=== PATIENT | female | born 1965 | race Caucasian/White ===

== ENCOUNTER 2022-08-25 09:43 | Outpatient (CLI) | payer OTHER, SELFPAY | END 2022-08-25 09:44 | disposition home or self-care (01) | LOC: NFLDREF 09:44 | PROVIDERS: Visit Provider Physician Assistant | DX: Z01.419 Encounter for gynecological examination (general) (routine) without abnormal findings (principal); Z13.6 Encounter for screening for cardiovascular disorders; Z13.1 Encounter for screening for diabetes mellitus | CPT/HCPCS: 80061; 82947 ==

== ENCOUNTER 2022-09-08 12:35 | Outpatient (CLI) | payer OTHER, SELFPAY ==
--- NOTE | 2022-09-08 13:00 | CRLHL7_ITS ---
For Patients: As a result of the Century Cures Act, medical imaging exams and procedure reports are released immediately into your electronic medical record. You may view this report before your referring provider. If you have questions, please contact your health care provider. INDICATION: Lung cancer screening. History of smoking. High risk patient with greater than 40 pack-year smoking history. TECHNIQUE: Low-dose lung cancer screening non-contrast CT chest. Dose reduction techniques were used. COMPARISON: None. FINDINGS: NODULES: Spiculated nodule left upper lobe measuring 7.2 x 10.0 x 9.4 millimeters, series 3, image 28. 6 millimeter ovoid nodule left lower lobe medially, series 3, image 64. LUNGS AND PLEURA: Mild paraseptal emphysematous changes. Mild ground-glass density right lower lobe, series 3, image 79. MEDIASTINUM: No adenopathy. CORONARY ARTERY CALCIFICATION: None. LIMITED UPPER ABDOMEN: Normal. MUSCULOSKELETAL: Normal. IMPRESSION: 1. 1 cm spiculated nodule left upper lobe. 2. 6 millimeter nodule left lower lobe. LUNG-RADS CATEGORY: 4X RADIOLOGIST RECOMMENDATION: PET-CT recommended. Please note that all CT scans at this facility use dose modulation, iterative reconstruction, and/or weight-based dosing when appropriate to reduce radiation dose to as low as reasonably achievable. Dictated by Victor Hugo Sandoval MD @ 09/08/2022 3:49:27 PM (Electronically Signed)
--- NOTE | 2022-09-08 13:45 | CRLHL7_ITS ---
For Patients: As a result of the Cures Act, medical imaging exams and procedure reports are released immediately into your electronic medical record. You may view this report before your referring provider. If you have questions, please contact your health care provider. EXAMINATION: MRA HEAD DATE: 09/08/2022. HISTORY: Patient with headaches and a family history of brain aneurysms. TECHNIQUE: 3D TOF MRA of the head was performed. COMPARISON: None. FINDINGS: The intracranial segments of the right internal carotid artery are normal. The anterior communicating artery is seen. The visualized portions of the right middle and anterior cerebral arteries are normal. The intracranial segments of the left internal carotid artery are normal. The visualized portions of the left middle and anterior cerebral arteries are normal. The right vertebral artery is dominant. The visualized intracranial portions of the vertebral arteries are normal. The basilar artery is normal. The right posterior cerebral artery is normal. The left posterior cerebral artery is normal. IMPRESSION: Normal MRA of the head without intracranial aneurysms. Steve Valdez M.D. Neurointerventionalist [facility] Pager: Office/Appointments: Answering Service: [facility]: [email or web address] Dictated by: Steve Valdez MD @ 09/08/2022 14:40:10 (Electronically Signed)
== END 2022-09-08 12:36 | disposition home or self-care (01) ==
PROVIDERS: Visit Provider Physician Assistant
DX: Z12.2 Encounter for screening for malignant neoplasm of respiratory organs (principal); R91.8 Other nonspecific abnormal finding of lung field; Z72.0 Tobacco use; Z82.49 Family history of ischemic heart disease and other diseases of the circulatory system
CPT/HCPCS: 70544; 71271

== ENCOUNTER 2022-10-30 16:03 | Outpatient (CLI) | payer OTHER, SELFPAY ==
--- NOTE | 2022-10-30 16:15 | CRLHL7_ITS ---
For Patients: As a result of the 21st Century Cures Act, medical imaging exams and procedure reports are released immediately into your electronic medical record. You may view this report before your referring provider. If you have questions, please contact your health care provider. EXAM: PET-CT SKULL BASE TO THIGH CLINICAL INFORMATION: 57-yo female with left upper lobe nodule. History of tobacco abuse. Patient is referred for further characterization. TECHNIQUE: Radiopharmaceutical: 11.7 mCi of 18F-FDG Intravenous injection site: RAC Uptake time: 61 minutes Blood glucose level at the time of injection: 88 mg/dL Field of view: Skull base to mid-thighs CT protocol: The low-dose, free-breathing, noncontrast CT performed as part of this study is designed for the purposes of attenuation correction and lesion localization, and it is neither sufficient, nor it should be substituted for diagnostic purposes. COMPARISON: CT chest 09/08/2022 FINDINGS: Physiologic background liver standardized uptake value (SUV mean and SUV max) reported for comparison between PET studies: 3.0 and 3.7. Visualized head and neck: Physiologic uptake in the visualized portions of the brain. Bilateral increased uptake within the lingual tonsils, SUV max 5.1. Nonspecific. Head and neck lymph nodes: No abnormal uptake. Lungs: Bilateral pulmonary nodules demonstrate variable uptake. For example: -anterior left upper lobe nodule with irregular margins and moderate uptake, 1.0 cm, SUV max 4.4 (fused image 102). Previously 1.1 cm (series 3, image 26). -medial left lower lobe nodule along the descending aorta, 0.5 cm, SUV max 1.5 (fused image 127). Previously 0.6 cm (series 3, image 64). -right lower lobe ground-glass opacity, 0.7 cm, SUV max 1.1 (fused image 139). Previously 0.7 cm (series 3, image 79). -right upper lobe nodular opacity, 0.4 cm, SUV max 0.7 (fused image 104). -additional right lung perifissural nodules and a small density along the diaphragm in the right base are considered too small to definitively characterize. Thoracic lymph nodes: Variable uptake within nonenlarged AP window, left perihilar and subcarinal lymph nodes is nonspecific though suspicious. For example: -AP window lymph node, 0.5 cm short axis, SUV max 5.1 (fused image 118). -left perihilar dagoberto uptake, SUV max 3.9 (fused image 122). -subcarinal lymph node, 0.7 cm short axis, SUV max 2.6. Other chest findings: Mild nonfocal esophageal uptake is nonspecific, possibly reactive or related to reflux. Hepatobiliary: No abnormal uptake. The body and fundus of the gallbladder are decompressed giving the appearance of wall thickening. Cholelithiasis. Spleen: No abnormal uptake. Pancreas: No abnormal uptake. Adrenals: No abnormal uptake. Kidneys and bladder: No abnormal uptake. Small nonobstructing right renal calcification and a punctate left renal calcification. Tracer activity in the renal collecting systems bilaterally. Limited bladder distention with generalized wall thickening more prominent along the anterior wall. Bowel and peritoneum: No suspicious gastric, small bowel uptake. Unremarkable appendix. Mild distal colonic diverticulosis. Pelvic organs: No abnormal uptake. Bilateral Essure devices. Abdominopelvic lymph nodes: No enlarged or hypermetabolic abdominopelvic lymph nodes. Musculoskeletal, soft tissues, skin: No suspicious tracer avid osseous lesions. Degenerative type uptake within the shoulders and spine. Other: Scattered aortoiliac atherosclerotic vascular calcifications. IMPRESSION: 1. Moderately avid irregular left upper lobe nodule is overall considered indeterminate though suspicious. 2. Nonenlarged [id number] avid AP window and left perihilar lymph nodes are considered suspicious. 3. Additional smaller bilateral lung nodules with low level uptake are considered nonspecific and difficult to characterize given small size. Attention on follow-up. 4. Decompressed body and fundus of the gallbladder giving the appearance of mild wall thickening. Directed ultrasound should be considered for further characterization. 5. No distant sites of tracer avid disease in the neck, solid organs of the upper abdomen or abdominal pelvic lymph nodes. 6. Limited bladder distention with mild generalized and more prominent anterior wall thickening. 7. Other nonacute findings as detailed in the body of the report. Dictated by Jae Ivey MD @ 11/06/2022 7:21:41 PM (Electronically Signed)
== END 2022-10-30 16:04 | disposition home or self-care (01) ==
PROVIDERS: PCP Physician Assistant; Visit Provider Physician Assistant
DX: R91.1 Solitary pulmonary nodule (principal)
CPT/HCPCS: 78816; A9552

== ENCOUNTER 2022-11-10 13:01 | Outpatient (CLI) | payer OTHER, SELFPAY ==
--- NOTE | 2022-11-10 13:20 | CRLHL7_ITS ---
For Patients: As a result of the Century Cures Act, medical imaging exams and procedure reports are released immediately into your electronic medical record. You may view this report before your referring provider. If you have questions, please contact your health care provider. BILATERAL SCREENING MAMMOGRAM WITH COMPUTER-AIDED DETECTION AND TOMOSYNTHESIS TECHNIQUE: CC and MLO views were obtained. These mammographic images have been obtained using full-field digital technique. These mammographic images were interpreted with the benefit of computer-aided detection. Breast Tomosynthesis was used in this interpretation. COMPARISON FILM: 08/28/16. FINDINGS: The breasts are heterogeneously dense, which may obscure small masses IMPRESSION: There is no radiographic evidence for malignancy. ASSESSMENT: BI-RADS Category 2: Benign RECOMMENDATION: Routine screening mammogram in 1 year. A lay language report of this examination will be provided to the patient. Victor Hugo Sandoval M.D. Diagnostic Radiologist [email or web address] PEREZ/Dictated by: Victor Hugo Sandoval MD @ 11/12/2022 8:36:00 AM (Electronically Signed)
== END 2022-11-10 13:02 | disposition home or self-care (01) ==
PROVIDERS: PCP Physician Assistant; Visit Provider Physician Assistant
DX: Z12.31 Encounter for screening mammogram for malignant neoplasm of breast (principal); R92.2 Inconclusive mammogram
CPT/HCPCS: 77063; 77067

== ENCOUNTER 2025-02-13 11:07 | Outpatient (CLI) | payer OTHER, SELFPAY | END 2025-02-13 11:08 | disposition home or self-care (01) | PROVIDERS: PCP Physician Assistant; Visit Provider Physician Assistant | DX: Z13.6 Encounter for screening for cardiovascular disorders (principal); Z13.1 Encounter for screening for diabetes mellitus; Z13.29 Encounter for screening for other suspected endocrine disorder | CPT/HCPCS: 80061; 82947; 84443 ==

== ENCOUNTER 2025-02-21 14:36 | Outpatient (CLI) | payer OTHER, SELFPAY ==
--- NOTE | 2025-02-21 15:00 | CRLHL7_ITS ---
For Patients: As a result of the Century Cures Act, medical imaging exams and procedure reports are released immediately into your electronic medical record. You may view this report before your referring provider. If you have questions, please contact your health care provider. INDICATION: Pulmonary nodule TECHNIQUE: CT chest without contrast. COMPARISON: September 2022. FINDINGS: Lungs and Airways: Subtle increased conspicuity of a now 4 millimeter nodular component abutting a previously visualized spiculated 10 millimeter nodule. Stable spiculated nodule in the left apex measuring 9 millimeters. Stable 7 millimeter right lower lobe ground-glass nodule, axial image 59. Stable medial aspect left lower lobe indeterminate pulmonary nodule measuring 5 millimeters. Additional stable scattered sub 6 millimeter indeterminate pulmonary nodules. No new suspicious pulmonary nodules. No endoluminal lesion. No mass or consolidation. Heart and Mediastinum: The visualized portions of the thyroid are normal. No axillary or supraclavicular lymphadenopathy. No mediastinal, hilar or retrocrural lymphadenopathy. Normal heart size. Normal caliber aorta. Atherosclerotic calcifications. Pleura: The pleural spaces are normal. Abdomen: Subcentimeter hypodensities that are too small to characterize in the liver however statistically represent cysts in the absence of known malignancy. Cholelithiasis. Bones and soft tissues: The skeletal structures and soft tissues of the chest wall are unremarkable. IMPRESSION: 1. Subtle increased conspicuity of a now 4 millimeter nodular component abutting a previously visualized spiculated 9 millimeter nodule. While this may be secondary to volume averaging artifact, recommend unenhanced chest CT in approximately 3-6 months to document stability and assess underlying malignant potential. 2. Otherwise, stable dating back to September 2022 scattered indeterminate pulmonary nodules measuring up to a spiculated 9 millimeter nodule in the left apex. No new suspicious pulmonary nodules. No mass or consolidation. Please note that all CT scans at this facility use dose modulation, iterative reconstruction, and/or weight-based dosing when appropriate to reduce radiation dose to as low as reasonably achievable. Dictated by Victor Hugo Ambrose MD @ 02/22/2025 6:33:16 PM (Electronically Signed)
== END 2025-02-21 14:37 | disposition home or self-care (01) ==
LOC: CT 14:36
PROVIDERS: Visit Provider Physician Assistant
DX: R91.1 Solitary pulmonary nodule (principal)
CPT/HCPCS: 71250

== ENCOUNTER 2025-03-07 13:47 | Outpatient (CLI) | payer OTHER, SELFPAY | END 2025-03-07 13:48 | disposition home or self-care (01) | LOC: NFLDREF 03-09 11:53 | PROVIDERS: PCP Family Medicine; Visit Provider Family Medicine | DX: Z00.00 Encounter for general adult medical examination without abnormal findings (principal) | CPT/HCPCS: 80053 ==